=== PATIENT | female | born 1990 | race Caucasian/White ===

== ENCOUNTER → 2020-09-01 | Outpatient (CLI) | payer OTHER ==
--- NOTE | 2020-09-05 16:05 | SLEEPCENT ---
NOCTURNAL POLYSOMNOGRAPHY DATE: 09/01/2020 ORDERED BY: LESLIE Reich Nocturnal polysomnography was performed for evaluation of sleep physiology. 7 hours and 53 minutes of data were reviewed. There were 420 minutes of sleep identified. Sleep latency was normal at 20 minutes. REM latency was somewhat delayed at 225.5 minutes. Sleep architecture once established was good with two long REM cycles. Overall sleep efficiency was 90.2%. The electrocardiogram showed a sinus rhythm with an average heart rate of 60 beats per minute; rate range 50 to 70. EEG showed some minor coarsening in the background. No focal events were identified. There were normal waveforms for wake and sleep. There were only six respiratory events identified of 10 seconds in duration or greater for an apnea-hypopnea index within normal limits at 0.9. Minor snoring was noted over the course of the study. There was some minor limb activity as well. No trains of events. Limb movement arousal index 1.7. IMPRESSION: Normal nocturnal polysomnography with snoring.
== END ==
LOC: M SLEEP 20:00
PROVIDERS: ATTEND Nurse Practitioner Family
DX: G47.33 Obstructive sleep apnea (adult) (pediatric) (principal)

== ENCOUNTER → 2020-11-30 | Outpatient (CLI) | payer OTHER ==
--- NOTE | 2020-11-30 12:45 | REP ---
INDICATION: TRAUMATIC ISCHEMIA OF MUSCLE. COMPARISON: None. TECHNIQUE/RADIOTRACER AND DOSE: After the intravenous administration of 22.0 mCi of technetium 99 M MDP a triple phase bone scan of the lower legs was obtained. FINDINGS: Flow and blood pool phases of the triple phase bone scan shows normal activity bilaterally. Normal diffuse anterior tibial uptake is seen bilaterally. There is no abnormal posterior tibial uptake or fibular uptake that would be considered consistent with espinoza splints. There is no abnormal focal uptake that would be considered consistent with stress fracture. IMPRESSION: Triple phase bone scan findings are within normal limits. There is no focal abnormality. <Electronically signed by John Mercedes > 11/30/20 [id number]
== END ==
LOC: M RAD 08:26
PROVIDERS: ATTEND Orthopaedic Surgery Adult Reconstructive Orthopaedic Surgery
DX: T79.6XXA Traumatic ischemia of muscle, initial encounter (principal)
CPT/HCPCS: 78315; A9503

== ENCOUNTER → 2020-12-20 | Outpatient (CLI) | payer OTHER ==
--- NOTE | 2020-12-21 19:29 | REP ---
INDICATION: BLOATING/EXCESSIVE MENSES COMPARISON: None. TECHNIQUE: Transabdominal pelvic ultrasound followed by transvaginal examination for better evaluation of the endometrium and adnexa with color Doppler evaluation of the ovaries. FINDINGS: Bladder is unremarkable and measures 15.5 x 8.6 x 10.2 cm. Normal anteverted uterus measures 8.4 x 4.0 x 4.4 cm. The endometrial complex measures 4 mm thickness. No discrete uterine or endometrial abnormalities are appreciated. IUD identified in central satisfactory position. Bilateral ovaries are normal in appearance. Right ovary measures 2.8 x 2.4 x 2.2 cm; left ovary measures 3.2 x 2.1 x 2.9 cm. No pelvic fluid or adnexal mass lesion. IMPRESSION: Normal pelvic ultrasound. <Electronically signed by Yimi Travis > 12/21/201924
== END ==
LOC: M WHC 11:19
PROVIDERS: ATTEND Nurse Practitioner Family
DX: N94.6 Dysmenorrhea, unspecified (principal)

== ENCOUNTER → 2022-05-19 | Outpatient (CLI) | payer OTHER ==
[~2022-05-19] MED LIST: MINO100C4 PO; VENL75TA2 PO
== END ==
LOC: M LABSMTC 11:08
PROVIDERS: ATTEND Anesthesiology
DX: Z01.812 Encounter for preprocedural laboratory examination (principal); Z20.822 Contact with and (suspected) exposure to COVID-19

== ENCOUNTER 2022-05-22 11:46 | Day surgery (SDC) | payer OTHER ==
[~2022-05-22] VITALS: Ht 162.6 cm; Wt 81.6 kg
[~2022-05-22 11:46] MED LIST changes: +ACETAMINOPHEN *IV* 1,000 MG IV ONE; +LR 1,000 ML IV SCH
[2022-05-22] MEDS ORDERED: LR 1,000 ML IV SCH (12:00)
[2022-05-22] MEDS ORDERED: fentaNYL 100 MCG/2 ML INJECTION As Ordered ONE (12:30)
[2022-05-22] MEDS ORDERED: propofoL 200 MG/20 ML VIAL As Ordered ONE (12:30)
[2022-05-22] MEDS ORDERED: LIDOCAINE 2% 100MG/5ML SDV (FOR ANES.) As Ordered ONE (12:30)
[2022-05-22] MEDS ORDERED: MIDAZOLAM INJ 2MG/2ML VIAL As Ordered ONE (12:30)
[2022-05-22 12:32] LABS: HEMATOCRIT 41.7 % (36.0-47.0); MEAN CORPUSCULAR HEMOGLOBIN 29.9 pg (27.0-33.0); MEAN CORPUSCULAR HGB CONC 33.6 g/dl (32.0-36.5); MEAN CORPUSCULAR VOLUME 88.9 fl (80.0-96.0); PLATELET COUNT, AUTOMATED 288 10^3/uL (150-450); RED BLOOD COUNT 4.69 10^6/uL (4.00-5.40); WHITE BLOOD COUNT 5.7 10^3/uL (4.0-10.0)
[2022-05-22] MEDS ORDERED: LIDOCAINE W/EPINEPHRINE 1% 20ML VIAL As Ordered ONE (15:26)
[2022-05-22] MEDS ORDERED: IODINE STRONG SOLN 15ML BTL As Ordered ONE (15:26)
[2022-05-22] MEDS ORDERED: KETOROLAC 60MG 2ML VIAL As Ordered ONE (16:07)
[2022-05-22] MEDS ORDERED: ONDANSETRON 4MG 2ML VIAL As Ordered ONE (16:07)
[2022-05-22] MEDS ORDERED: ACETAMINOPHEN 1000MG 100ML IV BAG As Ordered ONE (16:13)
[2022-05-22 16:50] VITALS: BP 130/79
== END 2022-05-22 16:55 | disposition home or self-care (01) ==
LOC: M SDC 11:46
PROVIDERS: ATTEND Obstetrics & Gynecology
DX: N87.0 Mild cervical dysplasia (principal); F41.9 Anxiety disorder, unspecified; F32.A Depression, unspecified; Z79.899 Other long term (current) drug therapy; Z87.891 Personal history of nicotine dependence; Z91.013 Allergy to seafood; Z88.0 Allergy status to penicillin
CPT/HCPCS: 36415; 57461; 81025; 85027; 86850; 86900; 86901; 88307; J1100; J2250; J2405; J3010